=== PATIENT | male | born 1965 | race Caucasian/White ===

== ENCOUNTER 2020-04-16 11:45 | Emergency (ER) | payer SELFPAY ==
[~2020-04-16] VITALS: Ht 172.7 cm; Wt 65.0 kg
[2020-04-16] MEDS ORDERED: ACETAMINOPHEN WITH CODEINE 300/30MG TABLET PO ONE (12:30)
[2020-04-16 15:29] LABS: CHLORIDE 105 mEq/L (98-107)
[2020-04-16 15:35] LABS: BASOPHILS % 0.8 % (0.0-2.0); EOSINOPHILS % 1.2 % (0.0-5.0); HEMATOCRIT. 37.4 % (42.0-52.0); HEMOGLOBIN. 12.7 g/dL (14.0-18.0); LYMPHOCYTES % 16.2 % (20.0-50.0); MEAN CORPUSCULAR HEMOGLOBIN 33.4 pg (28.0-32.0); MEAN CORPUSCULAR VOLUME 98.3 fL (80.0-94.0); MEAN PLATELET VOLUME 10.2 fl (7.4-10.4); MONOCYTES % 10.5 % (2.0-8.0); NEUTROPHILS % 71.3 % (40.0-76.0); PLATELET 152 x1000/uL (130-400); RED CELL DISTRIBUTION WIDTH 12.8 % (11.6-14.6)
[2020-04-16 16:19] VITALS: BP 107/60
== END 2020-04-16 19:20 | disposition home or self-care (01) ==
LOC: ER 11:59
DX: R04.0 Epistaxis (principal); B34.9 Viral infection, unspecified; I25.2 Old myocardial infarction; Z20.822 Contact with and (suspected) exposure to COVID-19
CPT/HCPCS: 36415; 71045; 80053; 83880; 84484; 85025; 87635; 93005; 99284

== ENCOUNTER 2023-01-27 19:59 | Emergency (ER) | payer MEDICAID, OTHER ==
[~2023-01-27] VITALS: Ht 165.1 cm; Wt 72.0 kg
[2023-01-27 20:26] VITALS: BP 142/98; PULSE 89; RESP 18; TEMP 97.8; O2SAT 99
== END 2023-01-27 23:35 | disposition home or self-care (01) ==
LOC: ER 19:59
DX: F10.129 Alcohol abuse with intoxication, unspecified (principal); Y90.9 Presence of alcohol in blood, level not specified
CPT/HCPCS: 36415; 80320; 99283; G0480